=== PATIENT | male | born 1995 | race Hispanic/Latino ===

== ENCOUNTER 2024-07-11 22:11 | Emergency (ER) | payer OTHER ==
[2024-07-11] MEDS ORDERED: MORPHINE 2 MG/ML SYR ONE (22:26)
[2024-07-11] MEDS ORDERED: KETOROLAC 30 MG/ML INJ ONE (22:26)
[2024-07-11] MEDS ORDERED: MORPHINE 4 MG/ML SYR ONE (22:26)
[2024-07-11] MEDS ORDERED: FAMOTIDINE 20 MG/2 ML VIAL IV ONE (22:27)
[2024-07-11 22:37] LABS: Absolute Basophils 0.1 K/uL (0-0.5); Absolute Eosinophils 0.4 K/uL (0-0.5); Absolute Lymphocytes (CBC) 2.1 K/uL (0.7-4.9); Absolute Monocytes 0.8 K/uL (0.1-1.3); Absolute Neutrophil 8.6 K/uL (1.8-8.0); Basophils % 0.8 % (0-1.3); Hematocrit 40.5 % (39.6-49.0); Hemoglobin 13.5 g/dL (13.6-17.9); Lymphocytes % 17.4 % (15.3-44.8); MCH 30.8 pg (27.0-35.0); MCHC 33.3 g/dL (32.0-36.0); MCV 92.5 fL (80-100); MPV 6.8 fL (7.6-11.3); Monocytes % 6.8 % (3.3-12.3); Nucleated Red Blood Cells % 0.1 % (0-0); Platelets 404 thou/uL (152-406); RBC Red Blood Cell Count 4.38 M/uL (4.33-5.43)
[2024-07-11 22:58] LABS: Albumin 3.5 g/dL (3.4-5.0); Anion Gap 5.6 mEq/L (5.0-15.0); Bilirubin Total 0.5 mg/dL (0.2-1.0); C-Reactive Protein 5.74 mg/L (<3.00); Globulin 3.5 g/dL (2.3-3.5); Potassium 3.6 mEq/L (3.5-5.1)
--- NOTE | 2024-07-11 23:23 | RAD REPORT ---
EXAM: Ultrasound abdomen limited CLINICAL DATA: 29 years Male ABD PAIN TECHNICAL DATA: Limited sonographic imaging of the right upper quadrant was performed on 07/11/2024 at 10: 40 PM. Comparison: No prior studies were available for comparison.. FINDINGS: Sonographic imaging was performed to evaluate the gallbladder. The gallbladder is well-distended. The re are no intraluminal echoes to suggest gallstones or sludge. The gallbladder wall measures approximately 2.4 mm in diameter. There is no evidence of pericholecystic fluid. As per the technolog ist, no sonographic Marcano sign was detected. The common bile duct measures approximately 4 to 5 mm in diameter which is within normal limits. There is no evidence of biliary ductal dilatation. IMPRESSION: Normal sonographic evaluation of the gallbladder. Electronically signed by: Jillian Scott DO 07/11/2024 11:19 PM [facility] Due to temporary technical issues with the PACS/Power scribe reporting system, reports are being signed by the in-house radiologist without review as a courtesy to ensure prompt reporting the interpreting radiologist is fully responsible for the content of the report. Transcribed Date/Time: 07/11/2024 11:22 PM
--- NOTE | 2024-07-12 00:46 | RAD REPORT ---
EXAM DESCRIPTION: Abdomen Pelvis W Contrast RadLex: CT ABDOMEN PELVIS WITH IV CONTRAST CLINICAL HISTORY: 29 years Male; ABD PAIN; IV ONLY Bed Name: 2 TECHNIQUE: CT of the abdomen and pelvis [with] intravenous contrast. All CT scans at this facility use dose modulation, iterative reconstruction, and/or weight based dosi ng when appropriate to reduce radiation dose to as low as reasonably achievable. COMPARISON: None. FINDINGS: Lower thorax: Lung bases are clear Abdomen: Stomach: Within normal limits Liver: No focal lesions. No intrahepatic ductal distention. Gallbladder: Nondistended Pancreas: Within normal limits Spleen: Within normal limits Right kidney: Mild hydronephrosis. Proximal ureteral stone measuring 2 mm. Multiple tiny renal stones . Subcentimeter hypodensities, too small to characterize. Left kidney: No hydronephrosis. Multiple tiny renal stones. Multiple renal cysts. Adrenal glands: Within normal limits Vascular structures: Within normal limits Nodes: No lymphadenopathy by size criteria Pelvis: Small bowel: No significant distention. Appendix: Within normal limits Colon: No distention or acute pericolonic edema. Peritoneum: No free intraperitoneal fluid or air. Bones: No acute bone findings. Bladder: Unremarkable. Reproductive organs: No acute findings. IMPRESSION: 1. Mild right-sided hydronephrosis with a 2 mm right proximal ureteral stone. 2. Bilateral nephrolithiasis. Electronically signed by: Gil Dinh MD 07/12/2024 12:08 AM [facility] Due to temporary technical issues with the PACS/Stubmatic reporting system, reports are being ryanne d by the in-house radiologist without review as a courtesy to ensure prompt reporting the interpreting radiologist is fully responsible for the content of the report. Transcribed Date/Time: 07/12/2024 12:45 AM
[2024-07-12 01:00] LABS: Calcium Oxalate Crystals- Ur Few /HPF (None Seen); Sqamous Epithelial None Seen /HPF (None Seen); Urine Bacteria None Seen /HPF (<20); Urine Culture Reflex Order REFLEXED; Urine Mucus 4+ /HPF (None Seen); Urine RBC >50 /HPF (None Seen)
[2024-07-12 01:02] LABS: Specific Gravity 1.026 (1.005-1.030); Urine Bilirubin NEGATIVE (Negative); Urine Blood 3+ (OVER) (Negative); Urine Clarity Extremely Turbid (Clear); Urine Color Light-Orange (Yellow); Urine Glucose NEGATIVE (Negative); Urine Ketones NEGATIVE (Negative); Urine Microscopic Reflex YN NO UMIC; Urine Nitrite NEGATIVE (Negative); Urine Protein 1+ (Negative); Urine Urobilinogen Normal (Normal); Urine pH 5.5 (5.0-7.0)
--- NOTE | 2024-07-12 01:03 | EDPHYS ---
Physician Documentation [facility] Name: Remberto Ragsdale Age: 29 yrs Sex: Male : 1995 Arrival Date: 07/11/2024 Time: 22:11 Bed 2 Private MD: ED Physician Karri Josue HPI: 07/11 22:16 This 29 yrs old Male presents to ER via Unassigned with complaints of Right sp4 upper abdominal pain . 07/12 06:53 29-year-old male presents with EMS for acute moderate to severe right abdominal pain. sp4 This is associated with nausea. Onset today.. Historical: - Allergies: 07/11 22:35 No Known Allergies; jb4 - Home Meds: 22:35 amlodipine oral [Active]; Bupropion Oral [Active]; Lisinopril Oral [Active]; naltrexone jb4 oral [Active]; Metformin Oral [Active]; - PMHx: 22:35 Diabetes mellitus; HTN; jb4 - PSHx: 22:35 None; jb4 - Immunization history:: Adult Immunizations up to date. - Infectious Disease History:: Denies. - Social history:: Smoking status: Patient reports use of chewing tobacco. Patient uses alcohol, occasionally. - Family history:: not pertinent. ROS: 07/12 06:53 Constitutional: Negative for fever, chills, and weight loss, positive right flank pain sp4 All other systems are negative, Exam: 06:53 Constitutional: This is a well developed, well nourished patient who is awake, alert, sp4 and in no acute distress. Head/Face: Normocephalic, atraumatic. Eyes: Pupils equal round and reactive to light, extra-ocular motions intact. Lids and lashes normal. Conjunctiva and sclera are not injected. Cornea within normal limits. Periorbital areas with no swelling, redness, or edema. ENT: Nares patent. No nasal discharge, no septal abnormalities noted. Tympanic membranes are normal and external auditory canals are clear. Oropharynx with no redness, swelling, or masses, exudates, or evidence of obstruction, uvula midline. Mucous membranes moist. Neck: Trachea midline, no thyromegaly or masses palpated, and no cervical lymphadenopathy. Supple, full range of motion without nuchal rigidity, or vertebral point tenderness. Chest/axilla: Normal chest wall appearance and motion. Nontender with no deformity. No lesions are appreciated. Cardiovascular: Regular rate and rhythm with a normal S1 and S2. No gallops, murmurs, or rubs. Normal PMI, no JVD. No pulse deficits. Respiratory: Lungs have equal breath sounds bilaterally, clear to auscultation and percussion. No rales, rhonchi or wheezes noted. No increased work of breathing, no retractions or nasal flaring. Abdomen/GI: Soft, with normal bowel sounds. No distension or tympany. No guarding or rebound. No evidence of tenderness throughout. Back: No spinal tenderness. No costovertebral tenderness. Skin: Warm, dry with normal turgor. Normal color with no rashes, no lesions, and no evidence of cellulitis. MS/ Extremity: Pulses equal, no cyanosis. Neurovascular intact. Full, normal range of motion. Neuro: Awake and alert, GCS 15, oriented to person, place, time, and situation. Cranial nerves II-XII grossly intact. Motor strength 5/5 in all extremities. Sensory grossly intact. Psych: Awake, alert, with orientation to person, place and time. Behavior, mood, and affect are within normal limits Vital Signs: 07/11 22:32 BP 118 / 73; Pulse 85; Resp 16; Pulse Ox 97% on R/A; Weight 104.33 kg (R); Height 6 ft. jb4 0 in. ; Pain 5/10; 23:46 BP 115 / 75; Pulse 77; Resp 16; Pulse Ox 98% on R/A; jb4 07/12 01:00 BP 108 / 61; Pulse 64; Resp 16; Pulse Ox 99% on R/A; jb4 07/11 22:32 Body Mass Index 31.19 (104.33 kg, 182.88 cm) 4 07/11 22:32 Pain Scale: Adult jb4 Edgard Coma Score: 06:53 Eye Response: spontaneous(4). Motor Response: obeys commands(6). Verbal Response: sp4 oriented(5). Total: 15. MDM: 07/11 22:17 Medical Screening Exam initiated sp4 07/12 06:53 Differential diagnosis: appendicitis, bowel obstruction, cholecystitis, Cholelithiasis, sp4 Hepatitis. Data reviewed: vital signs, nurses notes, old medical records, lab test result(s), radiologic studies, CT scan. Consideration of Admission/Observation Escalation of care including admission/observation considered. ED course: Positive for acute ureteral calculus, patient stable for discharge home. Prescribed symptomatic medication. ED course: EXAM DESCRIPTION: Abdomen Pelvis W Contrast RadLex: CTABDOMEN PELVIS WITH IV CONTRAST CLINICAL HISTORY: 29 years Male; ABD PAIN; IV ONLYBed Name: 2 TECHNIQUE: CT of the abdomen and pelvis [with] intravenous contrast. All CT scans at this facility use dose modulation, iterative reconstruction, and/or weight based dosing when appropriate to reduce radiation dose to as low as reasonably achievable. COMPARISON: None. FINDINGS: Lower thorax: Lung bases are clear Abdomen: Stomach:Within normal limits Liver:No focal lesions. No intrahepatic ductal distention. Gallbladder:Nondistended Pancreas:Within normal limits Spleen:Within normal limits Right kidney:Mild hydronephrosis. Proximal ureteral stone measuring 2 mm. Multiple tiny renal stones. Subcentimeter hypodensities, too small to characterize. Left kidney:No hydronephrosis. Multiple tiny renal stones. Multiple renal cysts. Adrenal glands:Within normal limits Vascular structures:Within normal limits Nodes:No lymphadenopathy by size criteria Pelvis: Small bowel:No significant distention. Appendix:Within normal limits Colon:No distention or acute pericolonic edema. Peritoneum: No free intraperitoneal fluid or air. Bones: No acute bone findings. Bladder: Unremarkable. Reproductive organs: No acute findings. IMPRESSION: 1. Mild right-sided hydronephrosis with a 2 mm right proximal ureteral stone. 2. Bilateral nephrolithiasis. Electronically signed by: Gil Dinh MD 07/12/2024 . 07/11 22:17 Order name: CBC with Diff; Complete Time: 23:02 sp4 07/11 22:17 Order name: CMP; Complete Time: 23:02 sp4 07/11 22:17 Order name: Lipase; Complete Time: 23:02 sp4 07/11 22:17 Order name: Urinalysis w/ reflexes; Complete Time: 01:08 sp4 07/11 22:17 Order name: CRP; Complete Time: 23:02 sp4 07/12 01:06 Order name: Urine Culture EDMS 07/11 22:17 Order name: Abdomen Limited US; Complete Time: 23:37 sp4 07/11 22:17 Order name: CT Abd/Pelvis - IV Contrast Only; Complete Time: 00:54 sp4 07/11 22:17 Order name: IV Saline Lock; Complete Time: 22:30 sp4 07/11 22:17 Order name: Labs collected and sent; Complete Time: 22:30 sp4 Administered Medications: 07/11 22:19 Drug: NS 0.9% IV 1000 ml IV at 1 bolus Per protocol; to be given as a bolus over 60 jb4 minutes {Note: finished EMS bolus.} Route: IV; Rate: 1 bolus; Site: right antecubital; 23:19 Follow up: Response: No adverse reaction; IV Status: Completed infusion; IV Intake: jb4 1000ml 22:51 Drug: Famotidine IVP 20 mg IVP once; dilute with 10 mL 0.9% NaCl; give over 2 minutes jb4 Route: IVP; Site: right antecubital; 23:30 Follow up: Response: No adverse reaction; Marked relief of symptoms jb4 22:51 Drug: TORadol - Ketorolac IVP 30 mg IVP once Route: IVP; Site: right antecubital; jb4 23:30 Follow up: Response: No adverse reaction; Marked relief of symptoms; Pain is decreased jb4 22:51 Drug: morphine IVP or IV 6 mg IVP once over 4 mins Route: IVP; Infused Over: 4 mins; jb4 Site: right antecubital; 23:30 Follow up: Response: No adverse reaction; Marked relief of symptoms; Pain is decreased; jb4 RASS: Alert and Calm (0) 07/12 01:56 Drug: Flomax PO 0.8 mg PO once Route: PO; jb4 01:57 Follow up: Response: Medication administered at discharge. jb4 01:56 Drug: HYDROcodone-acetaminophen PO 5 mg-325 mg 2 tabs PO once Route: PO; jb4 03:31 Follow up: Response: Medication administered at discharge.; RASS: Alert and Calm (0) jb4 01:56 Drug: Promethazine PO 25 mg PO once Route: PO; jb4 03:31 Follow up: Response: Medication administered at discharge.; RASS: Alert and Calm (0) 4 Disposition Summary: 07/12/24 01:03 Discharge Ordered Notes: Location: Home sp4 Problem: new sp4 Symptoms: have improved sp4 Condition: Stable sp4 Diagnosis - Acute right ureteral calculus, Acute Right flank pain sp4 Followup: sp4 - With: Marcos Jones MD - When: As needed - Reason: Recheck today's complaints Discharge Instructions: - Discharge Summary Sheet sp4 - Kidney Stones, [id number] sp4 Forms: - Work release form sp4 - Patient Portal Instructions sp4 Prescriptions: - Flomax 0.4 mg Oral capsule - take 1 capsule ORAL route every morning for 30 days; 30 capsule; Refills: 0, sp4 Product Selection Permitted - acetaminophen-codeine 300-60 mg Oral tablet - take 1 tablet ORAL route every 8 hours PRN pain; 12 tablet; Refills: 0, Product sp4 Selection Permitted - ketorolac 10 mg Oral tablet - take 1 tablet ORAL route every 8 hours for 3 days PRN pain; 30 tablet; Refills: sp4 0, Product Selection Permitted - ondansetron 8 mg Oral Tablet,disintegrating - take 1 tablet ORAL route every 8 hours PRN nausea; 30 tablet; Refills: 0, sp4 Product Selection Permitted Signatures: Dispatcher [employer] Emeka Salgado, RN RN jb4 Karri Josue MD MD sp4 Corrections: (The following items were deleted from the chart) 07/11 22:18 22:18 Abdomen Limited+US.RAD.BRZ ordered. EDMS EDMS 22:18 22:18 Abdomen Pelvis W Con+CT.RAD.BRZ ordered. EDMS EDMS 22:18 22:18 C-REACTIVE PROTEIN+C.LAB.BRZ ordered. EDMS EDMS
--- NOTE | 2024-07-12 01:03 | ER ---
Nurse's Notes [facility] Name: Remberto Ragsdale Age: 29 yrs Sex: Male : 1995 Arrival Date: 07/11/2024 Time: 22:11 Bed 2 Private MD: Diagnosis: Acute right ureteral calculus, Acute Right flank pain Presentation: 07/11 22:32 Chief complaint: EMS states: Pt reports N/V/D for the past few days. Today he tried to jb4 eat a slice of pizza and had severe right upper abdominal pain. He has had 4mg of zofran, 10mg of reglan, 100mcg of Fentanyl, and started on a 1L bolus of NS. Coronavirus screen: At this time, the client does not indicate any symptoms associated with coronavirus-19. Ebola Screen: No symptoms or risks identified at this time. Initial Sepsis Screen: Does the patient meet any 2 criteria? No. Patient's initial sepsis screen is negative. Does the patient have a suspected source of infection? No. Patient's initial sepsis screen is negative. Risk Assessment: Do you want to hurt yourself or someone else? Patient reports no desire to harm self or others. Onset of symptoms was July 11, 2024. Transition of care: patient was not received from another setting of care. 22:32 Method Of Arrival: EMS: [facility] jb4 22:32 Acuity: CONSTANTINO 3 jb4 Historical: - Allergies: 22:35 No Known Allergies; jb4 - Home Meds: 22:35 amlodipine oral [Active]; Bupropion Oral [Active]; Lisinopril Oral [Active]; naltrexone jb4 oral [Active]; Metformin Oral [Active]; - PMHx: 22:35 Diabetes mellitus; HTN; jb4 - PSHx: 22:35 None; jb4 - Immunization history:: Adult Immunizations up to date. - Infectious Disease History:: Denies. - Social history:: Smoking status: Patient reports use of chewing tobacco. Patient uses alcohol, occasionally. - Family history:: not pertinent. Screenin:25 [facility] ED Fall Risk Assessment (Adult) History of falling in the last 3 months, jb4 including since admission No falls in past 3 months (0 pts) Confusion or Disorientation No (0 pts) Intoxicated or Sedated No (0 pts) Impaired Gait No (0 pts) Mobility Assist Device Used No (0 pt) Altered Elimination No (0 pt) Score/Fall Risk Level 0 - 2 = Low Risk Oriented to surroundings, Maintained a safe environment. 22:25 Abuse screen: Denies threats or abuse. Nutritional screening: No deficits noted. jb4 Tuberculosis screening: No symptoms or risk factors identified. Assessment: 22:25 General: Appears in no apparent distress. uncomfortable, Behavior is calm, cooperative, jb4 appropriate for age. Pain: Complains of pain in right upper quadrant Pain does not radiate. Pain currently is 5 out of 10 on a pain scale. Neuro: Level of Consciousness is awake, alert, obeys commands, Oriented to person, place, time, situation. Cardiovascular: Patient's skin is warm and dry. Respiratory: Airway is patent Respiratory effort is even, unlabored, Respiratory pattern is regular, symmetrical. GI: Reports diarrhea, nausea, vomiting. Derm: Skin is intact, Skin is pink, warm \T\ dry. Musculoskeletal: Circulation, motion, and sensation intact. Range of motion: intact in all extremities. 23:45 Reassessment: Patient appears in no apparent distress at this time. Patient and/or jb4 family updated on plan of care and expected duration. Pain level reassessed. Patient is alert, oriented x 3, equal unlabored respirations, skin warm/dry/pink. 07/12 01:00 Reassessment: Patient appears in no apparent distress at this time. Patient and/or jb4 family updated on plan of care and expected duration. Pain level reassessed. Patient is alert, oriented x 3, equal unlabored respirations, skin warm/dry/pink. Patient states feeling better. 01:50 Reassessment: Patient appears in no apparent distress at this time. Patient and/or jb4 family updated on plan of care and expected duration. Pain level reassessed. Patient is alert, oriented x 3, equal unlabored respirations, skin warm/dry/pink. Vital Signs: 07/11 22:32 BP 118 / 73; Pulse 85; Resp 16; Pulse Ox 97% on R/A; Weight 104.33 kg (R); Height 6 ft. jb4 0 in. ; Pain 5/10; 23:46 BP 115 / 75; Pulse 77; Resp 16; Pulse Ox 98% on R/A; jb4 07/12 01:00 BP 108 / 61; Pulse 64; Resp 16; Pulse Ox 99% on R/A; jb4 07/11 22:32 Body Mass Index 31.19 (104.33 kg, 182.88 cm) jb4 07/11 22:32 Pain Scale: Adult jb4 Ne[place] Coma Score: 06:53 Eye Response: spontaneous(4). Motor Response: obeys commands(6). Verbal Response: sp4 oriented(5). Total: 15. ED Course: 07/11 22:14 Patient arrived in ED. kmf 22:15 Karri Josue MD is Attending Physician. sp4 22:25 Patient has correct armband on for positive identification. Bed in low position. Call jb4 light in reach. Side rails up X 1. Provided Education on: plan of care. 22:32 Emeka Escoto, RN is Primary Nurse. jb4 22:35 Triage completed. jb4 22:35 CBC with Diff Sent. vk 22:35 CMP Sent. vk 22:35 Lipase Sent. vk 22:35 CRP Sent. vk 22:35 Initial lab(s) drawn, by de, sent to lab. vk 22:35 Arm band placed on right wrist. jb4 23:00 Abdomen Limited US In Process Unspecified. EDMS 23:28 CT Abd/Pelvis - IV Contrast Only In Process Unspecified. EDMS 07/12 01:02 Marcos Jones MD is Referral Physician. sp4 01:55 No provider procedures requiring assistance completed. IV discontinued, intact, jb4 bleeding controlled, No redness/swelling at site. Pressure dressing applied. Administered Medications: 07/11 22:19 Drug: NS 0.9% IV 1000 ml IV at 1 bolus Per protocol; to be given as a bolus over 60 jb4 minutes {Note: finished EMS bolus.} Route: IV; Rate: 1 bolus; Site: right antecubital; 23:19 Follow up: Response: No adverse reaction; IV Status: Completed infusion; IV Intake: jb4 1000ml 22:51 Drug: Famotidine IVP 20 mg IVP once; dilute with 10 mL 0.9% NaCl; give over 2 minutes jb4 Route: IVP; Site: right antecubital; 23:30 Follow up: Response: No adverse reaction; Marked relief of symptoms jb4 22:51 Drug: TORadol - Ketorolac IVP 30 mg IVP once Route: IVP; Site: right antecubital; jb4 23:30 Follow up: Response: No adverse reaction; Marked relief of symptoms; Pain is decreased jb4 22:51 Drug: morphine IVP or IV 6 mg IVP once over 4 mins Route: IVP; Infused Over: 4 mins; jb4 Site: right antecubital; 23:30 Follow up: Response: No adverse reaction; Marked relief of symptoms; Pain is decreased; jb4 RASS: Alert and Calm (0) 07/12 01:56 Drug: Flomax PO 0.8 mg PO once Route: PO; jb4 01:57 Follow up: Response: Medication administered at discharge. jb4 01:56 Drug: HYDROcodone-acetaminophen PO 5 mg-325 mg 2 tabs PO once Route: PO; jb4 03:31 Follow up: Response: Medication administered at discharge.; RASS: Alert and Calm (0) jb4 01:56 Drug: Promethazine PO 25 mg PO once Route: PO; jb4 03:31 Follow up: Response: Medication administered at discharge.; RASS: Alert and Calm (0) jb4 Intake: 07/11 23:19 IV: 1000ml; Total: 1000ml. jb4 Outcome: 07/12 01:03 Discharge ordered by . [email or web address] 01:55 Discharged to home ambulatory, jb4 01:55 Condition: stable 01:55 Discharge instructions given to patient, Instructed on discharge instructions, follow up and referral plans. Demonstrated understanding of instructions, follow-up care, medications, Prescriptions given X 4, 01:58 Patient left the ED. 4 Signatures: Dispatcher [employer] EDMS Emeka Escoto RN RN jb4 Karri Josue MD MD sp4 Yulisa Barrera Vivian vk Corrections: (The following items were deleted from the chart) 03: 01:56 Response: Medication administered at discharge. jb4 jb4 03:31 01:56 Response: Medication administered at discharge. jb4 jb4 03:35 03:34 Response: No adverse reaction; Marked relief of symptoms; Pain is decreased; jb4 RASS: Alert and Calm (0) jb4
[2024-07-12] MEDS ORDERED: TAMSULOSIN 0.4 MG SR CAP ONE (01:47)
[2024-07-12] MEDS ORDERED: HYDROCODONE/APAP 5/325 MG TAB ONE (01:48)
[2024-07-12] MEDS ORDERED: PROMETHAZINE 25 MG TABLET ONE (01:48)
[2024-07-14 01:53] VITALS: BP 115/75; O2SAT 98
== END 2024-07-12 01:58 | disposition home or self-care (01) ==
LOC: ER 22:11
DX: N20.1 Calculus of ureter (principal); E11.9 Type 2 diabetes mellitus without complications; I10 Essential (primary) hypertension; F17.220 Nicotine dependence, chewing tobacco, uncomplicated
CPT/HCPCS: 96361; 87088; 85025; 87086; 36415; 81003; 83690; 80053; 86140; 74177; 76705; 96375; 96374; 99284; Q9967; Q0169; J2270